=== PATIENT | male | born 1990 | race Two or more races ===

== ENCOUNTER 2021-07-26 19:53 | Emergency (ER) | payer OTHER ==
[~2021-07-26] VITALS: Ht 180.3 cm; Wt 106.6 kg
[2021-07-26 23:16] VITALS: BP 145/99
[2021-07-26] MEDS ORDERED: LIDOCAINE 2%HCL (LOCAL ANESTH.) INJ 10ml MDV IJ ONE (23:30)
[2021-07-26] MEDS ORDERED: LIDOCAINE 2%HCL (LOCAL ANESTH.) INJ 10ml MDV ONE (23:40)
[2021-07-26] MEDS ORDERED: LIDOCAINE HCL 2 %PF INJ 10ML AMP IJ ONE (23:45)
[2021-07-27] MEDS ORDERED: BACITRACIN TOP OINT 1 UD PKG TOP ONE
[2021-07-27] MEDS ORDERED: CLIN300C8 PO (11:35)
== END 2021-07-27 00:19 | disposition home or self-care (01) ==
LOC: ER 19:56
DX: S51.812A Laceration without foreign body of left forearm, initial encounter (principal); Z88.0 Allergy status to penicillin; W25.XXXA Contact with sharp glass, initial encounter; Y93.89 Activity, other specified; Y92.89 Other specified places as the place of occurrence of the external cause; Y99.8 Other external cause status
CPT/HCPCS: 12002; 99282; J2001

== ENCOUNTER 2021-07-27 10:29 | Emergency (ER) | payer OTHER ==
[~2021-07-27] VITALS: Ht 180.3 cm; Wt 106.6 kg
[2021-07-27 10:31] VITALS: BP 152/92
[2021-07-27] MEDS ORDERED: CLIN300C8 PO (11:35)
== END 2021-07-27 11:54 | disposition home or self-care (01) ==
LOC: ER 10:29
DX: S51.812D Laceration without foreign body of left forearm, subsequent encounter (principal); Z76.0 Encounter for issue of repeat prescription; Z88.0 Allergy status to penicillin; X58.XXXD Exposure to other specified factors, subsequent encounter